=== PATIENT | male | born 1985 | race Caucasian/White ===

== ENCOUNTER 2022-03-17 21:35 | Emergency (ER) | payer OTHER ==
--- NOTE | 2022-03-17 22:15 | NUR ---
Called to triage, no answer
--- NOTE | 2022-03-17 22:15 | NUR ---
Patient left without being seen. No further treatment provided. ER MD aware
== END 2022-03-17 22:15 | disposition left against medical advice (07) ==
LOC: SED 21:35
DX: F41.9 Anxiety disorder, unspecified (principal); Z53.21 Procedure and treatment not carried out due to patient leaving prior to being seen by health care provider